=== PATIENT | female | born 1965 | race Caucasian/White ===

== ENCOUNTER 2016-06-18 18:37 | Emergency (ER) | payer MEDICAID ==
[~2016-06-18] VITALS: Ht 162.6 cm; Wt 45.0 kg
[~2016-06-18 18:37] MED LIST: BENA20TA2 PO; HYDR-3307 PO
[2016-06-18] MEDS ORDERED: IBUPROFEN 200 MG TABLET ONE (19:39)
[2016-06-18] MEDS ORDERED: IBUPROFEN 200 MG TABLET PO ONE (20:00)
[2016-06-18] MEDS ORDERED: SODIUM CHLORIDE 0.9% 1,000 ML IV ONE (20:10)
[2016-06-18] MEDS ORDERED: MORPHINE SULFATE 4 MG/ML, 1ML ONE (20:22)
[2016-06-18] MEDS ORDERED: ONDANSETRON 2MG/ML, 2ML ONE (20:22)
[2016-06-18] MEDS ORDERED: CLINDAMYCIN PMX 600MG/50ML 50 ML ONE (20:25)
[2016-06-18] MEDS ORDERED: ONDANSETRON 2MG/ML, 2ML IVPush ONE (20:30)
[2016-06-18] MEDS ORDERED: MORPHINE SULFATE 4 MG/ML, 1ML IVPush PRN (20:30)
[2016-06-18] MEDS ORDERED: CLINDAMYCIN PMX 600MG/50ML 50 ML IV ONE (20:30)
[2016-06-18] MEDS ORDERED: SODIUM CHLORIDE FLUSH 10ML SYR IVF ONE (20:30)
[2016-06-18] MEDS ORDERED: LORazepam 2 MG/ML, 1ML ONE (21:12)
[2016-06-18] MEDS ORDERED: LORazepam 2 MG/ML, 1ML IVPush ONE (21:30)
[2016-06-18 21:40] VITALS: BP 156/110
== END 2016-06-18 21:58 | disposition left against medical advice (07) ==
LOC: ED 21:53
DX: L03.011 Cellulitis of right finger (principal); M06.9 Rheumatoid arthritis, unspecified; J44.9 Chronic obstructive pulmonary disease, unspecified; M19.90 Unspecified osteoarthritis, unspecified site; F17.200 Nicotine dependence, unspecified, uncomplicated; F12.10 Cannabis abuse, uncomplicated; I10 Essential (primary) hypertension; Z85.50 Personal history of malignant neoplasm of unspecified urinary tract organ; Z88.6 Allergy status to analgesic agent; Z88.8 Allergy status to other drugs, medicaments and biological substances
CPT/HCPCS: 36415; 73140; 84550; 85025; 85651; 86141; 87040; 96365; 96375; 99285; J2060; J2405; J7030

== ENCOUNTER 2016-06-18 23:10 | Inpatient (IN) | payer MEDICAID ==
[~2016-06-18] VITALS: Ht 163.8 cm; Wt 49.1 kg
[2016-06-19 00:28] VITALS: BP 150/97
[2016-06-19] MEDS ORDERED: ONDANSETRON 2MG/ML, 2ML IVPush PRN (00:30)
[2016-06-19 00:33] VITALS: BP 150/97
[2016-06-19] MEDS: SODIUM CHLORIDE 0.9% 1,000 ML IV SCH ×2 (00:49→15:52)
[2016-06-19] MEDS: LORazepam 2 MG/ML, 1ML IVPush PRN ×3 (01:01→12:02)
[2016-06-19] MEDS: NICOTINE 21 MG/24 HR PATCH.TD24 TD SCH (01:07)
[2016-06-19] MEDS: MORPHINE SULFATE 4 MG/ML, 1ML IVPush PRN ×4 (02:02→22:53)
[2016-06-19] MEDS: CLINDAMYCIN PMX 600MG/50ML 50 ML IV SCH ×3 (05:59→20:39)
[2016-06-19 07:30] VITALS: BP 158/97
[2016-06-19] MEDS: BENAZEPRIL 20 MG TABLET PO SCH ×2 (09:32→20:39)
[2016-06-19 12:48] VITALS: BP 149/93
[2016-06-19 20:34] VITALS: BP 135/84
[2016-06-20] MEDS: NICOTINE 21 MG/24 HR PATCH.TD24 TD SCH (03:20)
[2016-06-20] MEDS: SODIUM CHLORIDE 0.9% 1,000 ML IV SCH ×2 (03:20→18:18)
[2016-06-20] MEDS: MORPHINE SULFATE 4 MG/ML, 1ML IVPush PRN ×5 (03:20→22:21)
[2016-06-20] MEDS: CLINDAMYCIN PMX 600MG/50ML 50 ML IV SCH ×3 (04:34→22:21)
[2016-06-20 05:00] VITALS: BP 144/83
[2016-06-20 05:07] LABS: BLOOD UREA NITROGEN 10 mg/dL (7-18)
[2016-06-20 05:45] VITALS: BP 149/95
[2016-06-20] MEDS: LORazepam 2 MG/ML, 1ML IVPush PRN (05:55)
[2016-06-20 07:18] VITALS: BP 143/93
[2016-06-20] MEDS ORDERED: POTASSIUM CHLORIDE 20 MEQ TAB.ER.PRT PO ONE (09:00)
[2016-06-20] MEDS: BENAZEPRIL 20 MG TABLET PO SCH ×2 (09:54→19:51)
[2016-06-20 13:10] VITALS: BP 150/94
[2016-06-20 19:25] VITALS: BP 157/108
[2016-06-21 01:28] VITALS: BP 131/68
[2016-06-21] MEDS: MORPHINE SULFATE 4 MG/ML, 1ML IVPush PRN ×7 (01:48→21:09)
[2016-06-21] MEDS: NICOTINE 21 MG/24 HR PATCH.TD24 TD SCH (04:43)
[2016-06-21] MEDS: CLINDAMYCIN PMX 600MG/50ML 50 ML IV SCH ×3 (05:59→21:09)
[2016-06-21] MEDS: SODIUM CHLORIDE 0.9% 1,000 ML IV SCH (06:00)
[2016-06-21 06:54] LABS: BLOOD UREA NITROGEN 8 mg/dL (7-18)
[2016-06-21 08:19] VITALS: BP 158/94
[2016-06-21] MEDS: BENAZEPRIL 20 MG TABLET PO SCH ×2 (10:15→21:09)
[2016-06-21 13:05] VITALS: BP 155/95
[2016-06-21 20:07] VITALS: BP 154/101
[2016-06-22] MEDS: MORPHINE SULFATE 4 MG/ML, 1ML IVPush PRN ×7 (00:16→23:30)
[2016-06-22 01:24] VITALS: BP 140/99
[2016-06-22] MEDS: NICOTINE 21 MG/24 HR PATCH.TD24 TD SCH (03:10)
[2016-06-22] MEDS: CLINDAMYCIN PMX 600MG/50ML 50 ML IV SCH ×3 (06:15→21:57)
[2016-06-22 06:34] VITALS: BP 131/89
[2016-06-22] MEDS: BENAZEPRIL 20 MG TABLET PO SCH ×2 (08:04→21:56)
[2016-06-22 13:10] VITALS: BP 138/86
[2016-06-22 15:38] LABS: DAU SCREEN DISCLAIMER
[2016-06-22] MEDS ORDERED: HYDROcodone/APAP 5/325 TABLET PO PRN (16:00)
[2016-06-22] MEDS: ACETAMINOPHEN 325 MG TABLET PO PRN (16:06)
[2016-06-22] MEDS ORDERED: MIDAZOLAM 1 MG/ML, 2ML ONE (19:45)
[2016-06-22] MEDS ORDERED: FENTANYL PF 250 MCG/5ML ONE (19:45)
[2016-06-22] MEDS ORDERED: BUPIVACAINE/PF 0.5% ONE (19:52)
[2016-06-22] MEDS ORDERED: METOCLOPRAMIDE 5 MG/ML, 2ML IV PRN (20:00)
[2016-06-22] MEDS ORDERED: ACETAMINOPHEN 325 MG TABLET PO PRN (20:00)
[2016-06-22] MEDS ORDERED: MEPERIDINE/PF 25MG/0.5ML IVPush PRN (20:00)
[2016-06-22] MEDS ORDERED: EPHEDRINE 50 MG/ML, 1ML IVPush PRN (20:00)
[2016-06-22] MEDS ORDERED: PROMETHAZINE 25 MG/ML, 1ML IV PRN (20:00)
[2016-06-22] MEDS ORDERED: LABETALOL 5MG/ML, 20ML IV PRN (20:00)
[2016-06-22] MEDS ORDERED: OXYcodone 5 MG/5 ML ORAL.SOL UDC PO PRN (20:00)
[2016-06-22] MEDS ORDERED: hydrALAzine 20 MG/ML, 1ML IV PRN (20:00)
[2016-06-22] MEDS ORDERED: ONDANSETRON 2MG/ML, 2ML IVPush PRN (20:00)
[2016-06-22] MEDS ORDERED: KETOROLAC 30 MG/1 ML IV PRN (20:00)
[2016-06-22] MEDS ORDERED: MIDAZOLAM 1 MG/ML, 2ML IV PRN (20:00)
[2016-06-22] MEDS ORDERED: METOPROLOL 1 MG/ML, 5ML IV PRN (20:00)
[2016-06-22] MEDS ORDERED: PROPOFOL 10 MG/ML, 20ML ONE (20:02)
[2016-06-22] MEDS ORDERED: ONDANSETRON 2MG/ML, 2ML ONE (20:02)
[2016-06-22] MEDS: FENTANYL PF 100 MCG/2ML IV PRN ×2 (20:49→20:58)
[2016-06-22] MEDS ORDERED: ACETAMINOPHEN 650 MG/20.3 ML UDC ONE (20:52)
[2016-06-22] MEDS ORDERED: FENTANYL PF 100 MCG/2ML ONE (20:52)
[2016-06-22] MEDS ORDERED: KETOROLAC 30 MG/1 ML ONE (20:53)
[2016-06-22] MEDS ORDERED: OXYcodone 5 MG/5 ML ORAL.SOL UDC ONE (20:53)
[2016-06-22] MEDS: HYDROmorphone 1 MG/ML, 1ML IV PRN ×2 (21:02→21:10)
[2016-06-22] MEDS ORDERED: DIPHENHYDRAMINE 50 MG/ML, 1ML ONE (21:06)
[2016-06-22] MEDS ORDERED: DIPHENHYDRAMINE 50 MG/ML, 1ML IVPush ONE (21:30)
[2016-06-22 21:43] VITALS: BP 137/85
[2016-06-22] MEDS ORDERED: HYDROmorphone 2 MG/ML, 1ML ONE (22:55)
[2016-06-23 01:50] VITALS: BP 119/62
[2016-06-23] MEDS: NICOTINE 21 MG/24 HR PATCH.TD24 TD SCH (02:33)
[2016-06-23] MEDS: MORPHINE SULFATE 4 MG/ML, 1ML IVPush PRN ×5 (02:33→15:36)
[2016-06-23 04:56] LABS: ASPARTATE AMINO TRANSFERASE 17 U/L (15-37); BLOOD UREA NITROGEN 15 mg/dL (7-18)
[2016-06-23] MEDS: CLINDAMYCIN PMX 600MG/50ML 50 ML IV SCH ×2 (05:37→15:36)
[2016-06-23] MEDS: ACETAMINOPHEN 325 MG TABLET PO PRN (05:49)
[2016-06-23 07:09] VITALS: BP 125/78
[2016-06-23] MEDS: BENAZEPRIL 20 MG TABLET PO SCH (09:22)
[2016-06-23] MEDS ORDERED: CLIN300C93 PO (11:52)
[2016-06-23] MEDS ORDERED: HYDR-3240 PO (11:52)
[2016-06-23 13:45] VITALS: BP 168/96
[2016-06-24] MEDS ORDERED: SULF1TAB24 PO (11:05)
== END 2016-06-23 15:55 | disposition home or self-care (01) | DRG 580 ==
LOC: ED 23:36 → EDIP 23:40 → 3NW 06-19 00:16
PROVIDERS: ADMIT Internal Medicine; ATTEND Internal Medicine
PROC: 0J9J0ZZ Drainage of Right Hand Subcutaneous Tissue and Fascia, Open Approach (ICD-10-PCS; principal; 2016-06-22 18:00)
DX: L03.011 Cellulitis of right finger (principal); K50.90 Crohn's disease, unspecified, without complications; M79.7 Fibromyalgia; J44.9 Chronic obstructive pulmonary disease, unspecified; I10 Essential (primary) hypertension; M19.90 Unspecified osteoarthritis, unspecified site; F17.210 Nicotine dependence, cigarettes, uncomplicated; M06.9 Rheumatoid arthritis, unspecified; E87.6 Hypokalemia; Z85.42 Personal history of malignant neoplasm of other parts of uterus; Z87.11 Personal history of peptic ulcer disease; Z90.710 Acquired absence of both cervix and uterus; Z90.49 Acquired absence of other specified parts of digestive tract
CPT/HCPCS: 36415; 80048; 80053; 80307; 84703; 85025; 85610; 87070; 87075; 87077; 87102; 87116; 87186; 87205; 87206; J1170; J1885; J2250; J2405; J2704; J3010; J3490; J1200; J2060; J7030